=== PATIENT | male | born 1975 | race African-American/Black ===

== ENCOUNTER 2022-06-26 16:41 | Emergency (ER) | payer OTHER ==
[~2022-06-26] VITALS: Ht 182.9 cm; Wt 108.9 kg
[2022-06-26 17:26] LABS: HEMATOCRIT 40.6 % (36.7-47.1); MEAN CORPUSCULAR HEMOGLOBIN 26.4 uug (23.8-33.4); PLATELET COUNT (AUTO) 223 K/uL (152-348)
[2022-06-26 17:50] LABS: CARBON DIOXIDE 28 mmol/L (21-32); CHLORIDE 103 mmol/L (98-107); CREATININE 1.1 mg/dL (0.6-1.3); GLUCOSE 105 mg/dL (74-106); POTASSIUM 3.9 mmol/L (3.5-5.1); UREA NITROGEN, BLOOD 11 mg/dL (7-18)
--- NOTE | 2022-06-26 19:19 | NUR ---
pt with [facility] officers outside of room, pt with handcuff to the urney. A second troponin was drawn on the pt, per md when this is negative the pt will be medically clear and able to be d/c to [facility].
--- NOTE | 2022-06-26 19:57 | NUR ---
Patient discharged to home in stable condition. Written and verbal after care instructions given. Patient verbalizes understanding of instructions. Stressed follow up or return to ER for worsening s/s. pt released to [facility] officer glenys and officer gilbert. [id number]
[2022-06-26 19:58] VITALS: BP 130/80
== END 2022-06-26 19:59 ==
LOC: ER 16:41
DX: R07.9 Chest pain, unspecified (principal); I10 Essential (primary) hypertension; E11.9 Type 2 diabetes mellitus without complications
CPT/HCPCS: 36415; 71045; 84484; 85025; 93005; A4663

== ENCOUNTER 2022-11-13 09:10 | Emergency (ER) | payer MEDICAID, OTHER ==
[~2022-11-13] VITALS: Ht 182.9 cm; Wt 108.9 kg
[2022-11-13] MEDS ORDERED: KETOROLAC TROMETHAMINE 30 MG INJ IM ONE (10:00)
[2022-11-13] MEDS ORDERED: KETOROLAC TROMETHAMINE 30 MG INJ ONE (10:06)
--- NOTE | 2022-11-13 10:18 | NUR ---
PT SEEN AND EVALUATED BY DR PAZ. MEDICATED FOR PAIN PER MD ORDER.
--- NOTE | 2022-11-13 11:37 | NUR ---
Patient discharged to home in stable condition. Written and verbal after care instructions given. Patient verbalizes understanding of instructions. Stressed follow up or return to ER for worsening s/s.
== END 2022-11-13 11:37 | disposition home or self-care (01) ==
LOC: ER 09:10
DX: M54.9 Dorsalgia, unspecified (principal); M25.531 Pain in right wrist; I10 Essential (primary) hypertension; E11.9 Type 2 diabetes mellitus without complications; Y35.813A Legal intervention involving manhandling, suspect injured, initial encounter; Y92.89 Other specified places as the place of occurrence of the external cause
CPT/HCPCS: 99284; 71250; 73110; 96372; J1885; A4663